=== PATIENT | female | born 1975 | race Caucasian/White ===

== ENCOUNTER 2016-12-27 05:25 | Inpatient (IN) | payer MEDICARE, OTHER ==
[2016-12-20 14:02] LABS: HEMOGLOBIN 14.1 g/dL (12.0-16.0)
[2016-12-20 14:03] LABS: HEMATOCRIT 39.4 % (36.0-48.0)
[2016-12-20 14:13] LABS: BUN (BLOOD UREA NITROGEN) 8 MG/DL (6-23); CALCIUM, SERUM 9.1 MG/DL (8.5-10.4); CHLORIDE, SERUM 99 MMOL/L (96-112); CO2 (CARBON DIOXIDE) 28 MMOL/L (24-34); CREATININE 0.95 MG/DL (0.55-1.02); GFR AFRICAN AMERICAN 86 ML/MIN (>=60); GFR NON AFRICAN AMERICAN 74 ML/MIN (>=60); GLUCOSE, SERUM 212 MG/DL (60-99); SODIUM, SERUM 137 MMOL/L (135-148)
--- NOTE | ~2016-12-27 | OP ---
Record Of Operation [facility] [address] [place]. [address] NAME: THAIS WILLIS : 75 STATUS : DIS IN PAT#: [id number] AGE: 41 ADM/REG DATE : 12/27/16 MR#: [id number] REPORT SERV DATE: 01/03/17 DICTATED BY: JESSIE MOORE II DATE: 01/03/17 REPORT STATUS : Draft TRANSCRIBED BY: MODL DATE: 01/03/17 DATE OF PROCEDURE: 12/27/2016 ADDENDUM PROCEDURES: 1. Anterior instrumentation, C4-5, C6-7. 2. Use of bone marrow aspirate and allograft substitute. 3. Use of the microscope. PREOPERATIVE HISTORY: A friendly female who did well. She reports following a C5-6 fusion many years ago. 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 She does have some psychiatric history, but overall, this appears to be well treated and her pain appears to be very legitimate. DESCRIPTION OF PROCEDURE: After informed consent was obtained, the patient was brought to the operating room at her request. General anesthesia was achieved and she was placed in the supine position and the neck and iliac crest, prepped and draped in a sterile fashion. 5 mL of bone marrow were aspirated from the iliac crest followed by a right-sided longitudinal incision. The interval was explored and the deep cervical fascia incised. The subperiosteal exposure was completed at C4-5 and C6-7. The previous plate at C5-6 was identified. It was as indicated by the x-ray slightly overhanging the C4-5 and C6-7 disk spaces. At this point, we spent a considerable amount of time trying to remove this plate. It unfortunately was not a DePuy plate as we had preoperatively anticipated, but a Stockwell plate. Unfortunately, we could not procure the proprietary screwdriver associated with this plate. We used the universal hardware removal system, and unfortunately, we were unable to remove the locking screws. I contemplated removing the plate with the metal cutting bur; however, I was afraid that the metal debris, which would of course be very hot could injure the soft tissue structures of the neck, so ultimately this was not attempted. At this point, I felt our only course of action was to proceed with the diskectomy and interbody arthrodesis at C4-5 and C6-7, but unfortunately that be forced to use a less robust plating mechanism. At this point, the C4-5 diskectomy was initiated with the knife followed by use of the pituitary rongeurs, Kerrison rongeurs, and the curettes. The microscope was brought into place and the endplates prepared and punctate bleeding bone identified. Again, visualization was difficult because of the previous plate, but we were able to remove some of the posterior vertebral body osteophytes. At this point, the space was trialed and the appropriate prosthetic device placed at C4-5. This contained allograft substitute and bone marrow aspirate. Next, the C6-7 level was treated in a similar manner with diskectomy and endplate preparation. The space was distracted and the appropriate size prosthetic device chosen. At this point, the anterior instrumentation was applied. We were able to largely place this Record Of Operation [facility] [id number] [place]. [address] NAME: THAIS WILLIS : 75 STATUS : DIS IN PAT#: [id number] AGE: 41 ADM/REG DATE : 12/27/16 MR#: [id number] REPORT SERV DATE: 01/03/17 DICTATED BY: JESSIE MOORE II DATE: 01/03/17 REPORT STATUS : Draft TRANSCRIBED BY: SOBIA DATE: 01/03/17 successfully, but again I was not pleased with the plate that had to be used. It simply was not as strong. This was applied at C4-5 and C6-7. The multiplanar imaging confirmed acceptable placement of the implants. A deep drain was placed. The patient was then extubated and transferred to PACU in stable condition. Additionally, the other option would be to perform a posterior spinal fusion and instrumentation. She is unfortunately at a higher risk of nonunion given the inability to use a more robust plating mechanism. Unfortunately, she is diabetic and she would be at increased risk for infection, so hopefully, this will not need to be pursued. NED/SOBIA Jessie Moore II, M.D. / [id number] CC: Jessie Moore II, M.D.
--- NOTE | ~2016-12-27 | CN ---
Consultation Report [facility] [address] [place]. [address] NAME: THAIS WILLIS : 75 STATUS : ADM IN PAT#: [id number] AGE: 41 ADM/REG DATE : 12/27/16 MR#: [id number] REPORT SERV DATE: 12/28/16 DICTATED BY: GREGORY YEPEZ DATE: 12/28/16 REPORT STATUS : Draft TRANSCRIBED BY: SOBIA DATE: 12/28/16 CONSULT DATE OF CONSULTATION: REASON FOR CONSULT: Postoperative diabetes management. The patient is a 41-year-old female, who had a neck surgery and she is now having elevated blood sugar postoperatively and she has history of diabetes, and I am consulted for her uncontrolled blood sugar post surgically. The patient currently asleep. She was given pain medications but she was awake earlier when she already ate her meal. The patient currently unable to answer any questions because she is asleep but the nurse reported that she wakes up easily and she did not have any chest pain or shortness of breath earlier. She was only complaining of the neck pain. PAST MEDICAL HISTORY: Past medical history was collected from medical records. The patient has history of diabetes for which she takes metformin as well as she had history of bipolar disorder, depression, and history of psychosis, such as schizophrenia. Her primary care physician is Dr. Giron. SURGICAL HISTORY: Bilateral knee arthroplastic surgeries; left hand surgery; bilateral knee replacement; and hysterectomy 10 years ago. ALLERGIES: NO KNOWN DRUG ALLERGIES. HOME MEDICATIONS: Include albuterol two puffs inhaled as needed; benztropine 2 mg p.o. at bedtime; Klonopin 0.5 three times a day; Prozac 20 mg daily; Neurontin 600, three or two times a day and pharmacy clarified this two times a day; hydroxyzine 50 mg at bedtime; Mobic 77.5 mg daily; metformin 500 mg three times daily before meals; Remeron 7.5 mg daily; oxycodone 30 mg twice a day; Seroquel 800 mg at bedtime; Tizanidine 4 mg at bedtime. SOCIAL HISTORY: History of tobacco use, quit in 2008. We do not if she uses alcohol excessively or not since she is asleep. Also family history currently unobtainable. PHYSICAL EXAMINATION: GENERAL: Well-nourished, well-developed female, sleeping quietly. VITAL SIGNS: Blood pressure 109/68, temperature 98.6, heart rate 100, respiratory rate 20, and oxygen saturation 94 on 2 L nasal cannula. HEENT: Head atraumatic, normocephalic. Oropharynx is clear and moist. NECK: Supple. Trachea is midline. No supraclavicular or cervical lymphadenopathy. LUNGS: Clear to auscultation bilaterally with slightly decreased respiratory effort. Consultation Report [facility] [id number] [place]. [address] NAME: THAIS WILLIS : 75 STATUS : ADM IN PAT#: [id number] AGE: 41 ADM/REG DATE : 12/27/16 MR#: [id number] REPORT SERV DATE: 12/28/16 DICTATED BY: GREGORY YEPEZ DATE: 12/28/16 REPORT STATUS : Draft TRANSCRIBED BY: SOBIA DATE: 12/28/16 CARDIOVASCULAR SYSTEM: Regular rate and rhythm. Point of maximal impulse not displaced. ABDOMEN: Soft. No tenderness to palpation. Very benign abdominal examination. Positive normoactive bowel sounds. No organomegaly. EXTREMITIES: No clubbing, cyanosis, or edema. SKIN: Normal color and turgor. LABORATORY RESULTS: Sodium 139, potassium 4.2, chloride 101, carbon dioxide 30, BUN 6, creatinine 0.93, blood sugar 274. White count 8.1, hemoglobin 12, hematocrit 34.4, and platelet count 218. Hemoglobin A1c ordered by me and pending. ASSESSMENT AND PLAN: This is a 41-year-old female who is status post surgery which was done by Dr. Ortega. I am consulted for diabetes management postoperatively. Currently blood sugar is elevated in the range 274, 229 and we are going to put the patient on the insulin level 2 sliding scale as well as we will give her low dose Levemir to control her blood sugar. Metformin is currently on hold since she is just postsurgical and may be started tomorrow, patient able to eat her meals as well. I think she is on a high dose Seroquel which also contributes to her hyperglycemia and also she is on oxycodone which also can cause increased sleepiness. We are going to monitor this, nurse is going to monitor for this. I think also blood sugar is elevated because of steroids which were given during surgery, so we will monitor that also clearly. We will recheck her blood sugars tomorrow. MG/MODL Gregory Yepez M.D. / [id number] CC: Aspen Hughes II
--- NOTE | ~2016-12-27 | OP ---
Record Of Operation [facility] [address] [place]. [address] NAME: THAIS WILLIS : 75 STATUS : DIS IN PAT#: [id number] AGE: 41 ADM/REG DATE : 12/27/16 MR#: [id number] REPORT SERV DATE: 01/02/17 DICTATED BY: JESSIE ORTEGA II DATE: 01/01/17 REPORT STATUS : Draft TRANSCRIBED BY: MODL DATE: 01/01/17 DATE OF PROCEDURE: 12/27/2016 PREOPERATIVE DIAGNOSES: 1. C4-C5, C6-C7 degenerative disk disease and adjacent segment degeneration with remote history of C5-C6 anterior cervical discectomy and fusion. 2. 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 POSTOPERATIVE DIAGNOSES: 1. C4-C5, C6-C7 degenerative disk disease and adjacent segment degeneration with remote history of C5-C6 anterior cervical discectomy and fusion. 2. 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 PROCEDURES: 1. C4-C5, C6-C7 anterior interbody arthrodesis. 2. Application of prosthetic devices, C4-C5, C6-C7. 3. Attempted removal of C5-C6 hardware. DICTATION ENDS HERE NED/SOBIA Jessie Ortega II, M.D. / [id number] CC: Aspen Hughes II [facility]
[~2016-12-27 05:25] MED LIST: ATARAX50B PO; COG2 PO; CYMBALTA60 PO; DURA50 TOP; GLUCPH PO; HEMOCYTE324 MG PO; JANUVIA100 MG PO; KLONO1 PO; KLONO5 PO; MOBIC7.5 PO; NEUR600 PO; OXYCONTIN30 MG PO; PCET PO; PROAIR HFA INH; PROZAC PO; REM15 PO; ROXICODONE15 MG PO; SEROQUEL200 MG PO; SEROQUEL400 MG PO; VOLTAREN1 % TOP; ZANAFLEX 4 MG TA4 MG PO; ZANTAC150 MG PO
[2016-12-28 10:10] LABS: MEAN CORPUSCULAR HEMOGLOB 28.8 pg (26.0-34.0); MEAN CORPUSCULAR VOLUME 82.5 fL (80-100); MEAN PLATELET VOLUME 9.4 fL (9.2-13.0); PLATELET COUNT 218 10/3/uL (150-400); RBC DISTRIBUTION WIDTH 13.5 % (12.0-16.0); RED CELL COUNT 4.17 10/6/uL (4.0-5.6)
[2016-12-28 10:12] LABS: HEMATOCRIT 34.4 % (36.0-48.0); MANUAL DIFF YES %; MEAN CORPUS HGB CONC 34.9 g/dL (32.0-36.0); WHITE BLOOD CELLS 8.1 10/3/uL (4.5-10.5)
[2016-12-28 10:24] LABS: BUN (BLOOD UREA NITROGEN) 6 MG/DL (6-23); CALCIUM, SERUM 9.1 MG/DL (8.5-10.4); CHLORIDE, SERUM 101 MMOL/L (96-112); CO2 (CARBON DIOXIDE) 30 MMOL/L (24-34); CREATININE 0.93 MG/DL (0.55-1.02); GFR AFRICAN AMERICAN 88 ML/MIN (>=60); GFR NON AFRICAN AMERICAN 76 ML/MIN (>=60); POTASSIUM, SERUM 4.2 MMOL/L (3.5-5.3); SODIUM, SERUM 139 MMOL/L (135-148)
[2016-12-28 10:25] LABS: GLUCOSE, SERUM 274 MG/DL (60-99)
[2016-12-28 10:33] LABS: BAND NEUTROPHILS 1 %; EOSINOPHILS 2 %; EOSINOPHILS ABSOLUTE (CALC) 0.16 10/3/uL (0.0-0.53); LYMPHOCYTES 25 %; LYMPHOCYTES ABSOLUTE (CALC) 2.03 10/3/uL (0.67-4.30); MONOCYTES 8 %; MONOCYTES ABSOLUTE (CALC) 0.65 10/3/uL (0.21-1.20); NEUTROPHILS ABSOLUTE (CALC) 5.27 10/3/uL (2.02-8.40); PLATELET ESTIMATE ADQ (ADEQUATE); SEGMENTED NEUTROPHIL (0) 64 %; TOTAL NUCLEATED CELLS 100
[2016-12-28 10:34] LABS: RBC MORPHOLOGY NORM (NORMAL)
[2016-12-29 05:29] LABS: BUN (BLOOD UREA NITROGEN) 5 MG/DL (6-23); CALCIUM, SERUM 8.5 MG/DL (8.5-10.4); CHLORIDE, SERUM 102 MMOL/L (96-112); CO2 (CARBON DIOXIDE) 29 MMOL/L (24-34); CREATININE 0.77 MG/DL (0.55-1.02); GFR AFRICAN AMERICAN 111 ML/MIN (>=60); GFR NON AFRICAN AMERICAN 96 ML/MIN (>=60); POTASSIUM, SERUM 4.6 MMOL/L (3.5-5.3); SODIUM, SERUM 143 MMOL/L (135-148)
[2016-12-29 05:34] LABS: GLUCOSE, SERUM 197 MG/DL (60-99)
== END 2016-12-29 16:34 | disposition home or self-care (01) | DRG 473 ==
LOC: SDC/OF 05:25 → PACU 10:16 → 3SO 14:34
PROVIDERS: Hospitalist; Orthopaedic Surgery
PROC: 0RG20A0 Fusion of 2 or more Cervical Vertebral Joints with Interbody Fusion Device, Anterior Approach, Anterior Column, Open Approach (ICD-10-PCS; principal; 2016-12-27 07:00)
PROC: 4A11X4G Monitoring of Peripheral Nervous Electrical Activity, Intraoperative, External Approach (ICD-10-PCS; 2016-12-27 07:00)
DX: M50.321 Other cervical disc degeneration at C4-C5 level (principal); J44.9 Chronic obstructive pulmonary disease, unspecified; E11.9 Type 2 diabetes mellitus without complications; J45.909 Unspecified asthma, uncomplicated; F31.9 Bipolar disorder, unspecified
CPT/HCPCS: 80048; 82962; 83036; 85014; 85018; 85025; 87641; 88304; 88311; 94660; A9270-GY; C1713; J0690; J1170; J2250; J2405; J2710; J3010